=== PATIENT | male | born 1950 | race Caucasian/White ===

== ENCOUNTER 2021-02-28 10:09 | Emergency (ER) | payer MEDICARE, OTHER ==
[~2021-02-28] VITALS: Ht 170.1 cm; Wt 90.7 kg
== END 2021-02-28 13:13 | disposition home or self-care (01) ==
LOC: ED 10:09
DX: H91.8X2 Other specified hearing loss, left ear (principal)

== ENCOUNTER → 2021-03-07 | Outpatient (CLI) | payer MEDICARE, OTHER | END | disposition home or self-care (01) | LOC: LAB 09:13 | PROVIDERS: ATTEND Physician Assistant | DX: H91.21 Sudden idiopathic hearing loss, right ear (principal) ==

== ENCOUNTER → 2021-05-28 | Outpatient (CLI) | payer MEDICARE, OTHER | END | disposition home or self-care (01) | LOC: COVID19 15:17 | PROVIDERS: ATTEND Internal Medicine | DX: Z11.52 Encounter for screening for COVID-19 (principal) ==

== ENCOUNTER 2025-07-06 09:28 | Emergency (ER) | payer MEDICARE, OTHER ==
[~2025-07-06] VITALS: Ht 170.1 cm; Wt 83.9 kg
[2025-07-06] MEDS ORDERED: Dexamethasone Sodium Phospha 20 MG/5 ML VIAL IM ONE (10:10)
[2025-07-06] MEDS ORDERED: METHOCARBAMOL 750 MG TAB PO ONE (10:10)
[2025-07-06] MEDS ORDERED: METHOCARBAMOL750 M1 PO (10:13)
[2025-07-06] MEDS ORDERED: PREDNISONE20 M1 PO (10:13)
[2025-07-06] MEDS ORDERED: TRAMADOL HCL50 MG PO (10:13)
== END 2025-07-06 10:30 | disposition home or self-care (01) ==
LOC: ED 09:28
DX: S39.012A Strain of muscle, fascia and tendon of lower back, initial encounter (principal); E11.9 Type 2 diabetes mellitus without complications; I10 Essential (primary) hypertension; K21.9 Gastro-esophageal reflux disease without esophagitis; E78.5 Hyperlipidemia, unspecified; X58.XXXA Exposure to other specified factors, initial encounter; Y93.E9 Activity, other interior property and clothing maintenance; Y92.002 Bathroom of unspecified non-institutional (private) residence as the place of occurrence of the external cause; Y99.8 Other external cause status